=== PATIENT | female | born 1980 | race African-American/Black ===

== ENCOUNTER 2022-04-25 17:54 | Emergency (ER) | payer MEDICAID ==
[~2022-04-25] VITALS: Ht 162.6 cm; Wt 64.0 kg
[2022-04-25] MEDS ORDERED: HYDROCODONE/ACETAMINOPHEN 5/325MG TABLET PO ONE (20:30)
[2022-04-25] MEDS ORDERED: HYDROCODONE/ACETAMINOPHEN 5/325MG TABLET PO NR (20:30)
[2022-04-25] MEDS ORDERED: IBUP-2029 MT (23:53)
[2022-04-26 00:02] VITALS: BP 120/84
== END 2022-04-26 00:04 | disposition home or self-care (01) ==
LOC: ER 17:54
DX: S20.212A Contusion of left front wall of thorax, initial encounter (principal); S80.02XA Contusion of left knee, initial encounter; S80.01XA Contusion of right knee, initial encounter; V49.9XXA Car occupant (driver) (passenger) injured in unspecified traffic accident, initial encounter; Y93.89 Activity, other specified; Y92.89 Other specified places as the place of occurrence of the external cause; Y99.8 Other external cause status
CPT/HCPCS: 71045; 72040; 73560; 81025; 99284